=== PATIENT | male | born 2000 | race Caucasian/White ===

== ENCOUNTER 2024-06-04 02:06 | Emergency (ER) | payer MEDICAID, SELFPAY ==
[2024-06-04 02:10] VITALS: BP 146/101; PULSE 93; RESP 18; TEMP 36.6; O2SAT 96; BMI 53.2
--- NOTE | 2024-06-04 02:42 | PC.NURSE ---
Pt ca&ox4, no signs of distress. Pt reports 10/10 tooth pain, believes he cracked his tooth and has not been able to sleep for a few days. Plan of care ongoing.
--- NOTE | 2024-06-04 03:42 | ED_ITS ---
HPI - Dental/Oral General Chief complaint: Dental/Oral Stated complaint: tooth infection? Time Seen by Provider: 06/04/24 03:07 Source: patient Mode of arrival: ambulatory Limitations: no limitations History of Present Illness ED Provider: carlos TEE Narrative: Patient complaining of pain right 2nd molar for last 2 days edit chipped tooth few days ago plan to see a dentist pain in shooting no swelling noticed Related Data Previous Rx's ?Medication ?Instructions ?Recorded amoxicillin 875 mg-potassium 1 tab PO BID #20 tabs 06/04/24 clavulanate 125 mg tablet oxycodone-acetaminophen 5 mg-325 1 tab PO Q6H PRN pain #20 tabs 06/04/24 mg tablet (Percocet) Allergies Allergy/AdvReac Type Severity Reaction Status Date / Time No Known Allergies Allergy Verified 06/04/24 02:13 Review of Systems 2 Review of Systems: Yes all other systems are reviewed and are negative PMFSH Social History Social History Smoked in Last 30 Days: No Use of substances other than those prescribed or required for medical reasons: Yes Substance Use Type: Marijuana Advance Directives: No Advance Directives Information Provided: No Do you have a plan to hurt others: No Plan Physical Exam 2 Vital Signs: Vital Signs: Last Vital Signs Temp 98.0 F 06/04/24 04:26 Pulse 87 06/04/24 04:26 Resp 18 06/04/24 04:26 BP 137/82 06/04/24 04:26 Pulse Ox 96 06/04/24 04:26 O2 Del Method Room Air 06/04/24 04:26 BMI result Body Mass Index 53.2 HEENT: Teeth image: 1. Tender to percussion tooth number 31 no gum swelling no pus discharge Medications Administered Discontinued Medications Generic Name Dose Route Start Last Admin Trade Name Freq PRN Reason Stop Dose Admin Amoxicillin/Clavulanate Potassium 875 mg 06/04/24 03:45 06/04/24 04:20 Amoxicillin/Potassium Clav 875 Mg Tablet PO 06/04/24 03:46 875 mg ONCE ONE Administration Morphine Sulfate 15 mg 06/04/24 03:45 06/04/24 04:20 Morphine Sulfate Immed Release 15 Mg Tablet PO 06/04/24 03:46 15 mg ONCE ONE Administration Medical Decision Making Medical Decision Making [facility] Narrative: Patient with likely with pulpitis of tooth number 31 will prescribe Augmentin advised to follow with dentist Discharge Plan Discharge Clinical Impression: Dental caries Patient Disposition: Home, Self-Care Instructions: Toothache (ED) Additional Instructions: Take pain medication as prescribed Antibiotic as prescribed Follow up with your dentist for further management Prescriptions: New oxycodone-acetaminophen [Percocet] 5-325 mg tablet 1 tab PO Q6H PRN (Reason: pain) Qty: 20 0RF Rx Instructions: Partial Fill upon patient request. amoxicillin-pot clavulanate 875-125 mg tablet 1 tab PO BID Qty: 20 0RF Interventions: ED Discharge Assessment Last Done: 06/04/24 04:26 Discharge Date/Time: 06/04/24 04:28 Print Language: Irish
[2024-06-04] MEDS: Amoxicillin/Potassium Clav 875 MG TABLET PO (04:20)
[2024-06-04] MEDS: Morphine Sulfate Immed Release 15 MG TABLET PO (04:20)
[2024-06-04 04:24] VITALS: BP 137/82; PULSE 87; RESP 18; O2SAT 96
[2024-06-04 04:26] VITALS: BP 137/82; PULSE 87; RESP 18; TEMP 36.7; O2SAT 96
== END 2024-06-04 04:28 | disposition home or self-care (01) ==
PROVIDERS: Emergency Provider Internal Medicine; PCP Nurse Practitioner Family
DX: K03.81 Cracked tooth (principal); K02.9 Dental caries, unspecified
CPT/HCPCS: 99283; 99284